=== PATIENT | male | born 1980 | race African-American/Black ===

== ENCOUNTER 2022-03-04 22:41 | Emergency (ER) | payer MEDICAID ==
[~2022-03-04] VITALS: Ht 170.2 cm; Wt 75.4 kg
[2022-03-05] MEDS ORDERED: ACETAMINOPHEN 325MG TABLET PO ONE (02:30)
[2022-03-05] MEDS ORDERED: IBUPROFEN 600MG TABLET PO ONE (02:30)
[2022-03-05 02:48] VITALS: BP 112/71
[2022-03-05] MEDS ORDERED: CYCL10TA21 MT (03:42)
[2022-03-05] MEDS ORDERED: IBUP-2029 MT (03:42)
== END 2022-03-05 04:18 | disposition home or self-care (01) ==
LOC: ER 22:41
DX: S39.012A Strain of muscle, fascia and tendon of lower back, initial encounter (principal); I10 Essential (primary) hypertension; V43.52XA Car driver injured in collision with other type car in traffic accident, initial encounter; Y93.89 Activity, other specified; Y92.410 Unspecified street and highway as the place of occurrence of the external cause; Z86.718 Personal history of other venous thrombosis and embolism
CPT/HCPCS: 72100; 99283